=== PATIENT | female | born 1940 | race Caucasian/White ===

== ENCOUNTER 2018-02-18 06:58 | Day surgery (SDC) | payer MEDICARE, OTHER ==
[~2018-02-18 06:58] MED LIST: Buffered Lidocaine 0.9% SYRIN* 5 ML/SYR SYRINGE INTRADERM ONE; Famotidine IV* 10 MG/ML 2 ML (20 mg) IV ONE
[2018-02-18] MEDS ORDERED: ceFAZolin 2 GM in NS 0.9% 100 ml IVPB ONE (07:00)
[2018-02-18] MEDS ORDERED: Famotidine IV* 10 MG/ML 2 ML (20 mg) ONE (07:52)
[2018-02-18] MEDS ORDERED: ceFAZolin 2 GM PREMIX (*) 2 GM/50 ML BAG IVPB ONE (07:52)
[2018-02-18 08:15] LABS: Hematocrit 34 % (35-47); Hemoglobin 11.6 g/dl (12.0-16.0); Mean Corpuscular HGB Conc 34 g/dl (31-36); Mean Corpuscular Hemoglobin 30 pg (27-31); Mean Corpuscular Volume 89 fL (80-97); Mean Platelet Volume 8.4 um3 (7.4-10.4); Platelet Count 261 10^3/ul (150-450); Red Blood Count 3.84 10^6/ul (4.0-5.4); Red Cell Distribution Width 14 % (10.5-15); White Blood Count 10.3 10^3/ul (3.5-10.8)
[2018-02-18] MEDS ORDERED: fentaNYL* 50 MCG/ML 2 ML VIAL (100 MCG VIAL) ONE ×2 (08:21→10:50)
[2018-02-18] MEDS ORDERED: Midazolam* 1 MG/ML 5 ML VIAL (5 MG) ONE (08:21)
[2018-02-18] MEDS ORDERED: ROPIVACAINE 5 MG/ML 30 ML BTL (0.5%) ONE (08:33)
[2018-02-18] MEDS ORDERED: Lidocaine 1%* 5 ML VIAL ONE (08:37)
[2018-02-18] MEDS ORDERED: EPINEPHRINE 1 MG/ML 1 ML VIAL ONE (08:46)
[2018-02-18] MEDS ORDERED: Bupivacaine 0.5% SDV PF* 10-30ML VIAL ONE (08:46)
[2018-02-18] MEDS ORDERED: DiMENhydriNATE IV* 50 MG/ML VIAL IV PUSH PRN (10:16)
[2018-02-18] MEDS ORDERED: oxyCODONE TAB* 5 MG TAB PO PRN (10:16)
[2018-02-18] MEDS ORDERED: Naloxone* 0.4 MG/ML 1 ML VIAL IV PRN (10:16)
[2018-02-18] MEDS ORDERED: Acetaminophen TAB* 325 MG PO PRN (10:16)
[2018-02-18] MEDS ORDERED: Lidocaine 2% PF * 5 ML VIAL ONE (10:28)
[2018-02-18] MEDS ORDERED: Dexamethasone IV* 4 MG/ML 1 ML (4 MG) ONE (10:28)
[2018-02-18] MEDS ORDERED: Succinylcholine* 20 MG/ML 10 ML VIAL ONE (10:28)
[2018-02-18] MEDS ORDERED: DiMENhydriNATE IV* 50 MG/ML VIAL ONE (10:28)
[2018-02-18] MEDS ORDERED: Ondansetron INJ* 2 MG/ML VIAL ONE (10:28)
[2018-02-18] MEDS ORDERED: Ketorolac INJ* 30 MG/ML 1 ML VIAL ONE (10:28)
[2018-02-18] MEDS ORDERED: Propofol* 10 MG/ML 20 ML BTL IV PUSH ONE (10:28)
[2018-02-18] MEDS ORDERED: fentaNYL* 50 MCG/ML 2 ML VIAL (100 MCG VIAL) IV PRN (10:53)
[2018-02-18] MEDS ORDERED: Levalbuterol 0.63MG/3ML NEB* UNIT OF USE INH ONE (14:15)
[2018-02-18] MEDS ORDERED: Acetaminophen TAB* 325 MG ONE (14:51)
[2018-02-18 15:47] VITALS: BP 169/68
--- NOTE | 2018-02-21 01:48 | OP ---
DATE OF OPERATION: 02/18/18 - [facility] DATE OF : 40 SURGEON: Rico Russo MD FOOD SERVICES COORDINATOR: SG Clarke. A PA was required for the length of the procedure for positioning, assistance with instrumentation and closure. ANESTHESIOLOGIST: Dr. Alicia Zurita. ANESTHESIA: General anesthesia, regional interscalene block anesthesia. PRE-OP DIAGNOSES: 1. Right shoulder rotator cuff tendon tear, supraspinatus, infraspinatus, full thickness. 2. Right shoulder acromioclavicular joint arthritis and subacromial impingement. 3. Right shoulder proximal biceps tendinosis and/or tear. POST-OP DIAGNOSES: 1. Right shoulder rotator cuff tendon tear, supraspinatus, infraspinatus, full thickness. 2. Right shoulder acromioclavicular joint arthritis and subacromial impingement. 3. Right shoulder proximal biceps tendinosis and superior labral tear. 4. Right shoulder mild glenohumeral joint osteoarthritis. OPERATIVE PROCEDURE: 1. Right shoulder arthroscopic rotator cuff tendon repair, supraspinatus, infraspinatus, double row. 2. Right shoulder arthroscopic subacromial decompression. 3. Right shoulder arthroscopic distal clavicle resection. 4. Right shoulder arthroscopic limited debridement including release of biceps tendon, debridement of superior labrum, debridement of rotator cuff interval tissue. ANTIBIOTICS: 2 g Ancef IV. IV FLUIDS: 2000 cc crystalloid. SPECIMEN: None. IMPLANTS: Two Mitek Healix 5.5 mm triple-loaded anchors, 5.5 mm. One Mitek Healix anchor, knotless, 5.5 mm. One of the sutures was not used in the more anterior of the two medial row anchors. SUIA-XX-WIQM TIME: 86 minutes. FLUID USED: Arthroscopy, 24 L. INDICATIONS FOR PROCEDURE: The patient is a 77-year-old woman, right hand dominant, who developed right shoulder pain in the 2016, refractory to nonoperative management, who opted for surgery. 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 The patient's pain was significantly disrupting her sleep and activities of daily living and she opted for surgery. I cautioned her about a decreased success rate given the patient's age, rheumatoid arthritis, and diabetes. Discussed risks and potential complications of surgery including bleeding, infection, nerve or blood vessel injury, shoulder pain, stiffness, osteoarthritis, rotator cuff tendon retear. Imaging preoperatively did show some mild glenohumeral joint osteoarthritis, but I did not believe this to be the cause of the patient's symptoms. This diagnosis was definitely confirmed intraoperatively with articular cartilage were noted. DESCRIPTION OF PROCEDURE: In preoperative holding, the patient signed an operative consent. Operative extremity was marked in the preoperative holding. Dr. Zurita performed an interscalene regional nerve block. The patient was placed supine on the operating room table. General anesthesia was induced. The patient was placed in the lateral decubitus position. 15 pounds of longitudinal traction in the appropriate amount of forward flexion and abduction. All bony prominences padded. Beanbag hardened. Axillary roll placed. Right shoulder was prepped with ChloraPrep. Draping was performed. Surgical time-out was performed. Glenohumeral joint was entered from posterior with a spinal needle. 30 cc of normal saline were infused. I made posterior glenohumeral joint portal using standard technique. Commenced diagnostic arthroscopy. There was some articular cartilage wear certainly in the glenohumeral joint. I noted grade 1 to 3 changes on the glenoid side and grade 2 to 3 changes on the humeral head side. No osteophytes encountered. There is significant tendinosis, fraying of the long head biceps tendon and there appeared to also be a superior labral tear. Full thickness tear of the supraspinatus was easily visible. I established an anterior glenohumeral joint portal using standard technique, direct visualization. Entered arthroscopic shaver. I debrided rotator interval synovitic tissue. Evaluated subscapularis tendon. Evaluated in a variety of positions of the humeral head. No tear there. Looked closely at the biceps tendon and the superior labrum. I confirmed my initial thoughts. Therefore, I decided to release the biceps tendon. I introduced a punch biter from anterior and used that to cut the biceps tendon. I used an arthroscopic shaver to smooth out the origin of the biceps tendon and superior labral tear. No loose bodies. No unstable articular cartilage lesions. Removed instruments from the glenohumeral joint and moved to the subacromial space. Encountered bursitis there. Established lateral subacromial portal under direct visualization. Introduced arthroscopic shaver and debrided bursitic tissue and better evaluated the rotator cuff tear, crescent shaped involving the supraspinatus, with full thickness in the anterior aspect of the infraspinatus tendon. Debrided with an arthroscopic shaver the end of the rotator cuff tendon as well as tissue on the footprint humeral head. I used a grasper to show that the tendon would reduce to bone. I debrided the undersurface of the acromion and the footprint with a vapor. Established a posterolateral portal to better visualize the tear and subacromial compartment. Using an arthroscopic bur, I debrided at least 8 mm anterior aspect of the acromion. This flattened out the undersurface of the acromion nicely. I also used the bur to prepare the footprint of the greater tuberosity. I introduced an arthroscopic probe. The probe indicated that the tear from anterior to posterior was definitely over 20 mm. I decided on two anchor needed for repair. I placed 2 triple-loaded 5.5 mm Healix Mitek anchors in the more medial aspect of the rotator cuff footprint. I did sew through superolateral stab skin incisions. I had introduced plastic cannulas into the anterior and lateral portals. Using a Hernández and Nephew suture passing device, I placed 2 horizontal mattress stitches from the anterior most anchor. I placed 2 horizontal mattress stitches and 1 simple stitch from the posterior anchor. I removed 1 of the sutures from the anterior anchor as we had sufficient stitches. After placing all sutures, I tied the stitches. Given that the width of the tear was over 20 mm, I decided to add a lateral row anchor. I took 4 sutures from the medial row and placed them into a lateral knotless anchor 5.5 mm Healix. The repair was excellent. Stable with motion of the humeral head and stable arthroscopic probing. I next addressed the AC joint. I debrided bursitic tissue about with arthroscopic shaver and vapor. Then, I removed at least 8 mm of the distal clavicle with an arthroscopic bur. The patient had a notable spur about the undersurface of the distal clavicle and notable spurring about the acromial side of that joint as well. I removed instruments and fluid. I closed the skin incisions with figure-of- eight stitches using nylon 4.0 suture. Xeroform, 4x4s, ABD, foam tape. Patient was placed in an UltraSling with a cooling unit. Patient was awakened and extubated and taken to the PACU. The patient was given aspirin x2 weeks for DVT prophylaxis, Percocet as needed for pain control, and Bactrim to prevent infection x5 days. Patient will follow up with me approximately 2 weeks postoperatively. The patient is to start physical therapy within the next week. Physical therapy prescription was written. [id number]/[facility] #: [id number] MTDD
== END 2018-02-18 15:46 | disposition home or self-care (01) ==
LOC: OR 06:58
PROVIDERS: ATTEND Orthopaedic Surgery
DX: S46.011D Strain of muscle(s) and tendon(s) of the rotator cuff of right shoulder, subsequent encounter (principal); M19.011 Primary osteoarthritis, right shoulder; M75.21 Bicipital tendinitis, right shoulder; M75.41 Impingement syndrome of right shoulder; I10 Essential (primary) hypertension; E11.9 Type 2 diabetes mellitus without complications; E03.9 Hypothyroidism, unspecified; E78.00 Pure hypercholesterolemia, unspecified; Z88.5 Allergy status to narcotic agent; X58.XXXD Exposure to other specified factors, subsequent encounter
CPT/HCPCS: 36415; 85027; A9270-GY; J0330; J0690; J1100; J1240; J1885; J2250; J2405; J2704; J2795; J3010; J7614

== ENCOUNTER 2019-04-19 12:13 | Day surgery (SDC) | payer MEDICARE, OTHER ==
[~2019-04-19 12:13] MED LIST changes: -Buffered Lidocaine 0.9% SYRIN* 5 ML/SYR SYRINGE INTRADERM ONE; +Buffered Lidocaine 1% SYRIN* 1 ML/SYRINGE INTRADERM ONE; -Famotidine IV* 10 MG/ML 2 ML (20 mg) IV ONE; +Lactated Ringers 1000 ML Bag* 1,000 ML IV SCH
[2019-04-19] MEDS ORDERED: Propofol* 10 MG/ML 20 ML BTL ONE (14:14)
[2019-04-19] MEDS ORDERED: Lidocaine 2% PF * 5 ML VIAL ONE ×2 (14:16→15:02)
[2019-04-19] MEDS ORDERED: Lidocaine 1% INJ* 10 MG/ML 30 ML SDV ONE (14:36)
[2019-04-19] MEDS ORDERED: Ropivacaine* 2 MG/ML 20 ML VIAL (0.2%) ONE (14:36)
[2019-04-19] MEDS ORDERED: Mepivacaine 2% MPF (20 MG/ML)* 20 ML MPF ONE (14:50)
[2019-04-19] MEDS ORDERED: fentaNYL* 50 MCG/ML 2 ML VIAL (100 MCG VIAL) ONE (14:59)
[2019-04-19] MEDS ORDERED: Clindamycin 900 MG IVPREMIX(* 900 MG/50 ML SDV IV ONE (15:14)
[2019-04-19] MEDS ORDERED: Dexmedetomidine* 200 MCG/2 ML 2 ML VIAL ONE (15:17)
[2019-04-19] MEDS ORDERED: EPHEDrine (Pressors)* 50 MG/ML VIAL ONE (15:44)
[2019-04-19] MEDS ORDERED: Naloxone* 0.4 MG/ML 1 ML VIAL IV PRN (16:31)
[2019-04-19] MEDS ORDERED: oxyCODONE TAB* 5 MG TAB PO PRN (16:31)
[2019-04-19] MEDS ORDERED: Acetaminophen TAB* 325 MG PO PRN (16:31)
[2019-04-19] MEDS ORDERED: fentaNYL* 50 MCG/ML 2 ML VIAL (100 MCG VIAL) IV PRN (16:31)
[2019-04-19 17:52] VITALS: BP 139/60
--- NOTE | 2019-04-20 00:20 | OP ---
OPERATIVE REPORT: DATE OF OPERATION: 04/19/19 DATE OF : 40 SURGEON: Dr. Rico Russo. MACHINE OILER: SG Clarke. A physician events administrative assistant was required for the length of the procedure for assistance with retraction and closure. ANESTHESIOLOGIST: Dr. Mariah Lynn. ANESTHESIA: General anesthesia, supraclavicular block, local anesthesia with 10 cc of lidocaine 1% p laced in the distal forearm and wrist. To clarify, the initial plan by anesthesia was for supraclavi cular block and light sedation. The supraclavicular block was not working, so we transitioned to loc al anesthesia and general anesthesia. PRE-OP DIAGNOSES: 1. Recurrent right carpal tunnel syndrome. 2. Status post 2015 open carpal tunnel release and excision of ganglion cyst by another surgeon. 3. Right cervical radiculopathy. POST-OP DIAGNOSES: 1. Recurrent right carpal tunnel syndrome. 2. Status post 2015 open carpal tunnel release and excision of ganglion cyst by another surgeon. 3. Right cervical radiculopathy. OPERATIVE PROCEDURES: 1. Revision right open carpal tunnel release. 2. Add catch to modifier 22 for unusual or complex nature of the procedure just because this was a r evision case, requiring a more careful dissection and a longer incision than does the primary carpal tunnel release surgery typically. ANTIBIOTICS: Clindamycin 900 mg IV. IV FLUIDS: See anesthesia note. TOURNIQUET TIME: 48 minutes at 250 mmHg, right upper arm. [id number] TIME: 43 minutes. SPECIMEN: None. IMPLANTS: None. COMPLICATIONS: None. ESTIMATED BLOOD LOSS: Minimal. INDICATIONS: The patient is a 78-year-old woman, right-hand dominant, who has previously had right s houlder surgery by me, who presented to me with complaints of numbness; tingling; and pain in the rig ht hand from December 2018, for the last 3 months. The patient had found wrist bracing to be helpful, reducing her symptoms, but that was insufficient t o make them go away. EMG/nerve conduction study was not ordered by me, but was ordered by another ph ysician; presumably her primary care physician, and it was done 02/01/19 and showed some moderate rig ht carpal tunnel syndrome, median neuropathy. However, it also showed some denervation, chronically, in the deltoid and biceps, presumably due to cervical radiculopathy. The patient had a wrist exam consistent with carpal tunnel syndrome. This, her response (positive) t o wrist bracing, and her persistent moderate carpal tunnel findings by electrodiagnostic studies, tog ether, convinced me that a revision carpal tunnel release would be worthwhile. 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 Discussed risks and potential complications. DESCRIPTION OF PROCEDURE: In preoperative holding, the patient signed a written consent. Operative extremity was marked in preoperative holding. The patient was taken back to the operating room. A supraclavicular block, regional was done by luis fernando gu. The patient was kept on the stretcher and a hand table was attached. The right upper extrem ity was prepped and draped after a tourniquet was placed about the upper arm. Surgical time-out performed. Esmarch was applied and tourniquet was elevated. I tested the patient's sensation. Seemed to be fully intact and the patient was moving her fingers. We, therefore, used some local anesthesia, my standard injection injection of 10 cc, to the forearm and wrist. This was to help the regional nerve block work. However, as I started to make the skin i ncision, it was clear that the regional supraclavicular nerve block had not worked well and so Anesth esia and I decided to transition the patient to general anesthesia. I made an extended skin incision for carpal tunnel release. I zigzagged the incision through the 2 w rist flexor creases. I kept the incision ulnar to the palmaris. I made my incision more ulnar than the prior surgical incision scar overlying the carpal tunnel. I dissected down to the tendons in the distal forearm. Used sharp dissection under loop magnificatio n to release the distal forearm fascia, which was still somewhat rodriguez. I nicely identified the cont ents of the carpal tunnel from proximal looking distal. The patient had much scar tissue present. I identified the hook of the hamate. I stayed out of the ulnar neurovascular bundle. I stayed along the ulnar aspect of the carpal tunnel and released the scar tissue. This opened up a full view of th e carpal tunnel. The median nerve had scarred to the prior incision and so I released that along its superficial aspec t and not let it come down into the carpal tunnel with the rest of the carpal tunnel contents. The c arpal tunnel was released clearly to the fat pad adjacent to the distal arterial arch. In our extend ed incision, we could clearly see the contents of the carpal tunnel from proximal to distal to the ca rpal tunnel. There was clearly no tissue compressing the median nerve in any location. I just did a limited synovectomy, removing some synovium from the median nerve. It did not seem over ly constricted in any one particular location. It seemed freely mobile. The recurrent motor branch to the thenar muscles was not visible, although I did not probe along its entire length distally. I had considered a nerve wrap for creating a superficial patch, but decided against this. My incision was well ulnar of the median nerve. Irrigation with bulb syringe. I dropped the tourniquet. There was no significant bleeding. There w ere just a couple of dots of blood just below the skin. I used bipolar electrocautery to cauterize t hese. I replaced the Esmarch and elevated the tourniquet for closure. I closed the skin incision wi th horizontal mattress and several simple stitches using nylon 4.0 suture. Xeroform, 4x4, sterile Webril, big bulky dressing, Coban. The patient was awaked and extubated and brought to PACU. DISPOSITION: The patient was discharged home when medically stable. The patient was given Percocet as needed for pain control. [facility]. Wound care instructions provided. The patient was visited in PACU and had some numbness in the median nerve distribution, not surprising based on my local ane sthesia placed intraoperatively. It should be stated that the decision by Anesthesia to do the supra clavicular nerve block was because, as part of the preoperative workup by primary care doctor, there was found to be elevated lactic acid. Liver function tests and creatinine were normal. It was thoug ht that the lactic acid was elevated because of metformin use. Primary care physician had approved t he patient having surgery, preoperative optimization, and clearance. However, Anesthesia, very reaso nably, preferred to do a regional nerve block if possible rather than general anesthesia because of a ny additional insult that general anesthesia might produce on internal organs. [id number] #: [id number]
== END 2019-04-19 17:54 | disposition home or self-care (01) ==
LOC: OR 12:13
PROVIDERS: ATTEND Orthopaedic Surgery
DX: G56.01 Carpal tunnel syndrome, right upper limb (principal); E11.42 Type 2 diabetes mellitus with diabetic polyneuropathy; Z79.84 Long term (current) use of oral hypoglycemic drugs; M06.9 Rheumatoid arthritis, unspecified; N18.3 Chronic kidney disease, stage 3 (moderate); M19.90 Unspecified osteoarthritis, unspecified site; Z87.891 Personal history of nicotine dependence; E78.2 Mixed hyperlipidemia; E03.9 Hypothyroidism, unspecified; G47.33 Obstructive sleep apnea (adult) (pediatric); I12.9 Hypertensive chronic kidney disease with stage 1 through stage 4 chronic kidney disease, or unspecified chronic kidney disease; E83.52 Hypercalcemia
CPT/HCPCS: J0670; J2704; J2795; J3010